=== PATIENT | female | born 1955 | race Caucasian/White ===

== ENCOUNTER 2020-10-03 07:25 | Outpatient (REF) | payer BC, SELFPAY ==
[2020-10-03 11:11] LABS: MANUAL DIFF FLAG NO
[2020-10-03 11:30] LABS: Basophils Percent Auto 0.5 % (0-2); Eosinophils Absolute Auto 0.1 X10*3/uL (0.0-0.4); Eosinophils Percent Auto 1.9 % (0-4); Hematocrit 43.8 % (37-47); Hemoglobin 14.8 g/dl (12.0-16.0); Imm Gran Abs Auto 0.02 X10*3/uL (0.00-0.03); Imm Gran Pct Auto 0.3 % (0.0-0.4); Lymphocytes Absolute Auto 1.9 X10*3/uL (1.2-4.9); Lymphocytes Percent Auto 31.7 % (20-40); Mean Corpuscular HGB Conc 33.8 g/dl (31.0-35.0); Mean Corpuscular Hemoglobin 30.2 pg (27.0-33.0); Mean Corpuscular Volume 89.4 fL (80-98); Mean Platelet Volume 10.1 fL (9.4-12.3); Monocytes Absolute Auto 0.4 X10*3/uL (0.1-1.2); Monocytes Percent Auto 7.2 % (2-11); Neutrophils Absolute Auto 3.4 X10*3/uL (2.0-8.3); Neutrophils Percent Auto 58.4 % (45-73); Platelet Count 255 X10*3/uL (160-400); Red Cell Distribution Width 12.4 % (11.0-16.0); White Blood Count 5.9 X10*3/uL (4.8-10.8)
[2020-10-03 11:36] LABS: Estimated Average Glucose 186 mg/dL; Hemoglobin A1c % 8.1 %
[2020-10-03 11:57] LABS: Glucose Urine UA NEG (NEG); Leukocyte Esterase Urine 1+ (NEG); Nitrite Urine NEG (NEG); PH 5.5 (5.0-8.0); Urine Blood NEG (NEG); Urine Ketones NEG (NEG); Urine Protein NEG (NEG-TRACE)
[2020-10-03 12:01] LABS: Appearance Urine HAZY; Color Urine YELLOW
[2020-10-03 12:04] LABS: Alanine Aminotransferase 43 U/L (0-31); Albumin Level 4.5 g/dL (3.5-5.0); Alkaline Phosphatase 78 U/L (39-117); Anion Gap 15 (12-20); Aspartate Amino Transferase 26 U/L (5-31); Bilirubin Total 0.6 mg/dL (0.0-1.0); Blood Urea Nitrogen 11 mg/dL (9-16); Calcium 8.9 mg/dL (8.4-10.2); Carbon Dioxide 27 mmol/L (22-29); Chloride 99 mmol/L (96-108); Cholesterol 166 mg/dL; Estimated Glomerular Filt Rate > 60; Glucose Fasting 208 mg/dL (60-99); HDL Cholesterol 42 mg/dL; LDL Cholesterol Calculated 65 mg/dl; Potassium 4.1 mmol/l (3.3-5.1); Sodium 137 mmol/L (135-145); Total Protein 6.9 g/dL (6.5-8.0); Triglycerides 296 mg/dL
[2020-10-03 12:06] LABS: Thyroid Stimulating Hormone 2.52 uIU/mL (0.32-4.0); Vitamin D 25-OH Total 28.7 ng/mL (>30)
[2020-10-03 12:15] LABS: Creatinine Urine 96.52 mg/dL; Microalbum/Creatinine Ratio Ur 5.1 ug/mg cr
[2020-10-03 12:20] LABS: Calcium Oxalate Crystals Urine 1+ /LPF; RBC Urine 0 /HPF (0); Squamous Epithelial Cell Urine 1+ /LPF
== END 2020-10-03 07:26 | disposition home or self-care (01) ==
LOC: HO.HMGCLDS 07:25
PROVIDERS: PCP Internal Medicine; Visit Provider Internal Medicine
DX: E03.9 Hypothyroidism, unspecified (principal); Z00.00 Encounter for general adult medical examination without abnormal findings; R73.02 Impaired glucose tolerance (oral); I10 Essential (primary) hypertension
CPT/HCPCS: 36415; 80053; 80061; 81001; 82043; 82306; 83036; 84443; 85025

== ENCOUNTER 2021-01-01 07:34 | Outpatient (REF) | payer MEDICARE, SELFPAY ==
[2021-01-01 11:25] LABS: Estimated Average Glucose 169 mg/dL; Hemoglobin A1c % 7.5 %
[2021-01-01 11:59] LABS: Alanine Aminotransferase 33 U/L (0-31); Albumin Level 4.5 g/dL (3.5-5.0); Alkaline Phosphatase 69 U/L (39-117); Anion Gap 15 (12-20); Aspartate Amino Transferase 20 U/L (5-31); Bilirubin Total 0.4 mg/dL (0.0-1.0); Blood Urea Nitrogen 15 mg/dL (9-16); Carbon Dioxide 26 mmol/L (22-29); Chloride 102 mmol/L (96-108); Cholesterol 176 mg/dL; Estimated Glomerular Filt Rate > 60; Glucose Fasting 203 mg/dL (60-99); HDL Cholesterol 43 mg/dL; LDL Cholesterol Calculated 77 mg/dl; Potassium 4.1 mmol/L (3.3-5.1); Sodium 139 mmol/L (135-145); Triglycerides 282 mg/dL
== END 2021-01-01 07:35 | disposition home or self-care (01) ==
LOC: HO.HMGCLDS 07:34
PROVIDERS: PCP Internal Medicine; Visit Provider Internal Medicine
DX: Z00.00 Encounter for general adult medical examination without abnormal findings (principal); I10 Essential (primary) hypertension; E03.9 Hypothyroidism, unspecified; E11.9 Type 2 diabetes mellitus without complications
CPT/HCPCS: 36415; 80053; 80061; 83036

== ENCOUNTER 2021-05-02 07:04 | Outpatient (REF) | payer MEDICARE, SELFPAY ==
[2021-05-02 11:35] LABS: Estimated Average Glucose 140 mg/dL; Hemoglobin A1c % 6.5 %
[2021-05-02 11:38] LABS: Glucose Urine UA NEG (NEG); Leukocyte Esterase Urine 1+ (NEG); Nitrite Urine NEG (NEG); PH 5.5 (5.0-8.0); Urine Blood NEG (NEG); Urine Ketones NEG (NEG); Urine Protein NEG (NEG-TRACE)
[2021-05-02 11:40] LABS: Creatinine Urine 86.36 mg/dL; Microalbumin Urine < 5.0 mg/L
[2021-05-02 11:46] LABS: Alanine Aminotransferase 33 U/L (0-31); Albumin Level 4.3 g/dL (3.5-5.0); Alkaline Phosphatase 70 U/L (39-117); Anion Gap 15 (12-20); Aspartate Amino Transferase 23 U/L (5-31); Bilirubin Total 0.5 mg/dL (0.0-1.0); Blood Urea Nitrogen 15 mg/dL (9-16); Calcium 9.3 mg/dL (8.4-10.2); Carbon Dioxide 24 mmol/L (22-29); Chloride 103 mmol/L (96-108); Cholesterol 162 mg/dL; Estimated Glomerular Filt Rate > 60; Glucose Fasting 164 mg/dL (60-99); HDL Cholesterol 46 mg/dL; LDL Cholesterol Calculated 70 mg/dl; Potassium 4.4 mmol/L (3.3-5.1); Sodium 138 mmol/L (135-145); Total Protein 6.9 g/dL (6.5-8.0); Triglycerides 232 mg/dL
[2021-05-02 11:47] LABS: Appearance Urine HAZY; Color Urine YELLOW
[2021-05-02 12:10] LABS: RBC Urine 0-2 /HPF (0); Squamous Epithelial Cell Urine 1+ /LPF
[2021-05-02 12:11] LABS: Calcium Oxalate Crystals Urine 2+ /LPF
== END 2021-05-02 07:05 | disposition home or self-care (01) ==
LOC: HO.HMGCLDS 07:04
PROVIDERS: PCP Internal Medicine; Visit Provider Internal Medicine
DX: E11.9 Type 2 diabetes mellitus without complications (principal)
CPT/HCPCS: 36415; 80053; 80061; 81001; 82043; 83036

== ENCOUNTER 2021-09-17 09:04 | Outpatient (REF) | payer MEDICARE, SELFPAY ==
[2021-09-17 11:51] LABS: Appearance Urine TURBID; Color Urine YELLOW; Glucose Urine UA NEG (NEG); Leukocyte Esterase Urine 1+ (NEG); Nitrite Urine NEG (NEG); Specific Gravity - Urine >= 1.030 (1.005-1.025); UACC Culture Trigger YES; Urine Blood 1+ (NEG); Urine Ketones NEG (NEG); Urine Protein TRACE MG/DL (NEG-TRACE)
[2021-09-17 12:08] LABS: Bacteria Urine 1+ /LPF; Squamous Epithelial Cell Urine 2+ /LPF
[2021-09-17 12:09] LABS: Amorphous Sediment Urine 4+ /LPF
== END 2021-09-17 09:05 | disposition home or self-care (01) ==
LOC: HO.HMGCLDS 09:04
PROVIDERS: PCP Internal Medicine; Visit Provider Internal Medicine
DX: N30.90 Cystitis, unspecified without hematuria (principal)
CPT/HCPCS: 81001; 87086

== ENCOUNTER 2021-11-09 07:41 | Outpatient (REF) | payer MEDICARE, SELFPAY ==
[2021-11-09 11:16] LABS: MANUAL DIFF FLAG NO
[2021-11-09 11:21] LABS: Basophils Percent Auto 0.6 % (0-2); Eosinophils Absolute Auto 0.1 X10*3/uL (0.0-0.4); Eosinophils Percent Auto 2.6 % (0-4); Hematocrit 45.6 % (37.0-47.0); Hemoglobin 15.2 g/dl (12.0-16.0); Imm Gran Abs Auto 0.01 X10*3/uL (0.00-0.03); Imm Gran Pct Auto 0.2 % (0.0-0.4); Lymphocytes Absolute Auto 1.8 X10*3/uL (1.2-4.9); Lymphocytes Percent Auto 33.3 % (20-40); Mean Corpuscular HGB Conc 33.3 g/dl (31.0-35.0); Mean Corpuscular Hemoglobin 30.3 pg (27.0-33.0); Mean Corpuscular Volume 90.8 fL (80.0-98.0); Mean Platelet Volume 9.7 fL (9.4-12.3); Monocytes Absolute Auto 0.4 X10*3/uL (0.1-1.2); Monocytes Percent Auto 7.2 % (2-11); Neutrophils Percent Auto 56.1 % (45-73); Platelet Count 234 X10*3/uL (160-400); Red Blood Count 5.02 X10*6/uL (4.20-5.50); Red Cell Distribution Width 12.8 % (11.0-16.0); White Blood Count 5.3 X10*3/uL (4.8-10.8)
[2021-11-09 11:36] LABS: Appearance Urine HAZY; Glucose Urine UA NEG (NEG); Leukocyte Esterase Urine 2+ (NEG); Nitrite Urine NEG (NEG); PH 5.5 (5.0-8.0); Specific Gravity - Urine >= 1.030 (1.005-1.025); Urine Blood TRACE (NEG); Urine Ketones NEG (NEG); Urine Protein TRACE MG/DL (NEG-TRACE)
[2021-11-09 11:39] LABS: Color Urine YELLOW
[2021-11-09 11:52] LABS: Calcium Oxalate Crystals Urine 1+ /LPF
[2021-11-09 11:53] LABS: Bacteria Urine TRACE /LPF; Mucus Urine 1+ /LPF; RBC Urine 0-2 /HPF (0); Squamous Epithelial Cell Urine 1+ /LPF
[2021-11-09 11:55] LABS: Alanine Aminotransferase 31 U/L (0-31); Albumin Level 4.3 g/dL (3.5-5.0); Alkaline Phosphatase 81 U/L (39-117); Anion Gap 15 (12-20); Aspartate Amino Transferase 22 U/L (5-31); Bilirubin Total 0.4 mg/dL (0.0-1.0); Blood Urea Nitrogen 12 mg/dL (9-16); Calcium 9.6 mg/dL (8.4-10.2); Carbon Dioxide 26 mmol/L (22-29); Chloride 103 mmol/L (96-108); Cholesterol 167 mg/dL; Estimated Glomerular Filt Rate > 60; Glucose Fasting 169 mg/dL (60-99); HDL Cholesterol 39 mg/dL; LDL Cholesterol Calculated 87 mg/dl; Potassium 4.1 mmol/L (3.3-5.1); Sodium 140 mmol/L (135-145); Total Protein 6.9 g/dL (6.5-8.0); Triglycerides 205 mg/dL
[2021-11-09 11:56] LABS: Estimated Average Glucose 140 mg/dL; Hemoglobin A1c % 6.5 %
[2021-11-09 12:15] LABS: Thyroid Stimulating Hormone 0.84 uIU/mL (0.32-4.0); Vitamin D 25-OH Total 31.1 ng/mL (>30)
[2021-11-09 12:22] LABS: Creatinine Urine 201.49 mg/dL; Microalbum/Creatinine Ratio Ur 8.9 ug/mg cr
== END 2021-11-09 07:42 | disposition home or self-care (01) ==
LOC: HO.HMGCLDS 07:41
PROVIDERS: Visit Provider Internal Medicine
DX: E11.9 Type 2 diabetes mellitus without complications (principal); I10 Essential (primary) hypertension; E03.9 Hypothyroidism, unspecified
CPT/HCPCS: 36415; 80053; 80061; 81001; 82043; 82306; 83036; 84443; 85025

== ENCOUNTER 2022-08-19 07:36 | Outpatient (REF) | payer MEDICARE, SELFPAY ==
[2022-08-19 11:06] LABS: MANUAL DIFF FLAG NO
[2022-08-19 11:15] LABS: Appearance Urine Cloudy; Color Urine Yellow; Glucose Urine UA Negative (Negative); Leukocyte Esterase Urine Large (3+) (Negative); Nitrite Urine Negative (Negative); PH 5.5 (5.0-9.0); UMIC TRIGGER UA YES; Urine Blood Negative (Negative); Urine Ketones Negative (Negative); Urine Protein Negative (Neg-Trace)
[2022-08-19 11:27] LABS: Bacteria Urine 1+ (None Seen); Calcium Oxalate Crystals Urine Present; Hyaline Casts Urine 0-2 /LPF (0-2); WBC Urine >50 /HPF (0-5)
[2022-08-19 11:35] LABS: Basophils Percent Auto 0.7 % (0-2); Eosinophils Absolute Auto 0.1 X10*3/uL (0.0-0.4); Eosinophils Percent Auto 1.9 % (0-4); Hematocrit 42.7 % (37.0-47.0); Hemoglobin 14.6 g/dl (12.0-16.0); Imm Gran Abs Auto 0.02 X10*3/uL (0.00-0.03); Imm Gran Pct Auto 0.3 % (0.0-0.4); Lymphocytes Absolute Auto 1.9 X10*3/uL (1.2-4.9); Lymphocytes Percent Auto 32.9 % (20-40); Mean Corpuscular HGB Conc 34.2 g/dl (31.0-35.0); Mean Corpuscular Hemoglobin 31.3 pg (27.0-33.0); Mean Corpuscular Volume 91.4 fL (80.0-98.0); Mean Platelet Volume 9.8 fL (9.4-12.3); Monocytes Absolute Auto 0.3 X10*3/uL (0.1-1.2); Monocytes Percent Auto 5.8 % (2-11); Neutrophils Absolute Auto 3.4 x10*3/uL (2.0-8.3); Neutrophils Percent Auto 58.4 % (45-73); Platelet Count 265 X10*3/uL (160-400); Red Blood Count 4.67 X10*6/uL (4.20-5.50); Red Cell Distribution Width 12.8 % (11.0-16.0); White Blood Count 5.9 X10*3/uL (4.8-10.8)
[2022-08-19 11:37] LABS: Estimated Average Glucose 134 mg/dL; Hemoglobin A1c % 6.3 %
[2022-08-19 12:03] LABS: Thyroid Stimulating Hormone 3.13 uIU/mL (0.32-4.0)
[2022-08-19 12:08] LABS: Alanine Aminotransferase 20 U/L (0-31); Albumin Level 4.3 g/dL (3.5-5.0); Alkaline Phosphatase 73 U/L (39-117); Anion Gap 18 (12-20); Aspartate Amino Transferase 18 U/L (5-31); Bilirubin Total 0.5 mg/dL (0.0-1.0); Blood Urea Nitrogen 13 mg/dL (9-16); Calcium 9.3 mg/dL (8.4-10.2); Carbon Dioxide 26 mmol/L (22-29); Chloride 101 mmol/L (96-108); Cholesterol 181 mg/dL; Estimated Glomerular Filt Rate > 60; Glucose Fasting 169 mg/dL (60-99); HDL Cholesterol 42 mg/dL; LDL Cholesterol Calculated 67 mg/dl; Potassium 3.8 mmol/L (3.3-5.1); Sodium 141 mmol/L (135-145); Total Protein 6.8 g/dL (6.5-8.0); Triglycerides 363 mg/dL
[2022-08-19 12:13] LABS: Creatinine Urine 105.48 mg/dL; Microalbum/Creatinine Ratio Ur 5.6 ug/mg cr
== END 2022-08-19 07:37 | disposition home or self-care (01) ==
LOC: HO.HMGCLDS 07:36
PROVIDERS: PCP Internal Medicine; Visit Provider Internal Medicine
DX: E11.9 Type 2 diabetes mellitus without complications (principal); E03.9 Hypothyroidism, unspecified; I10 Essential (primary) hypertension
CPT/HCPCS: 36415; 80053; 80061; 81001; 82043; 82306; 83036; 84443; 85025

== ENCOUNTER 2022-08-25 14:14 | Outpatient (REF) | payer MEDICARE, SELFPAY ==
[2022-08-25 16:45] LABS: Appearance Urine Clear; Color Urine Yellow; Glucose Urine UA Negative (Negative); Leukocyte Esterase Urine Trace (Negative); Nitrite Urine Negative (Negative); Specific Gravity - Urine 1.025 (1.005-1.025); UMIC TRIGGER UACC YES; Urine Blood Negative (Negative); Urine Ketones Negative (Negative); Urine Protein Negative (Neg-Trace)
[2022-08-25 17:11] LABS: Bacteria Urine None Seen (None Seen); Calcium Oxalate Crystals Urine Present; Hyaline Casts Urine 0-2 /LPF (0-2); Squamous Epithelial Cell Urine 0-2 /HPF (0-2); WBC Urine 0-5 /HPF (0-5)
== END 2022-08-25 14:15 | disposition home or self-care (01) ==
LOC: HO.HMGCLDS 14:14
PROVIDERS: PCP Internal Medicine; Visit Provider Internal Medicine
DX: R82.81 Pyuria (principal)
CPT/HCPCS: 81001; 87086

== ENCOUNTER 2023-02-19 07:48 | Outpatient (REF) | payer MEDICARE, SELFPAY ==
[2023-02-19 11:04] LABS: MANUAL DIFF FLAG NO
[2023-02-19 11:14] LABS: Appearance Urine Cloudy; Color Urine Yellow; Glucose Urine UA Negative (Negative); Leukocyte Esterase Urine Small (1+) (Negative); Nitrite Urine Negative (Negative); PH 5.5 (5.0-9.0); Specific Gravity - Urine >= 1.030 (1.005-1.025); UMIC TRIGGER UA YES; Urine Blood Negative (Negative); Urine Ketones Trace mg/dL (Negative); Urine Protein Trace mg/dL (Neg-Trace)
[2023-02-19 11:28] LABS: Bacteria Urine None Seen (None Seen); Calcium Oxalate Crystals Urine Present; Hyaline Casts Urine 0-2 /LPF (0-2)
[2023-02-19 11:47] LABS: Basophils Percent Auto 0.8 % (0-2); Eosinophils Absolute Auto 0.1 X10*3/uL (0.0-0.4); Eosinophils Percent Auto 1.8 % (0-4); Hematocrit 42.6 % (37.0-47.0); Imm Gran Abs Auto 0.01 X10*3/uL (0.00-0.03); Imm Gran Pct Auto 0.2 % (0.0-0.4); Lymphocytes Absolute Auto 1.5 X10*3/uL (1.2-4.9); Lymphocytes Percent Auto 30.8 % (20-40); Mean Corpuscular HGB Conc 32.9 g/dl (31.0-35.0); Mean Corpuscular Hemoglobin 29.7 pg (27.0-33.0); Mean Corpuscular Volume 90.4 fL (80.0-98.0); Mean Platelet Volume 9.9 fL (9.4-12.3); Monocytes Absolute Auto 0.3 X10*3/uL (0.1-1.2); Neutrophils Absolute Auto 2.9 x10*3/uL (2.0-8.3); Neutrophils Percent Auto 59.4 % (45-73); Platelet Count 252 X10*3/uL (160-400); Red Blood Count 4.71 X10*6/uL (4.20-5.50); White Blood Count 4.9 X10*3/uL (4.8-10.8)
[2023-02-19 11:49] LABS: Estimated Average Glucose 146 mg/dL; Hemoglobin A1c % 6.7 %
[2023-02-19 12:02] LABS: Creatinine Urine 181.08 mg/dL; Microalbum/Creatinine Ratio Ur 7.1 ug/mg cr
[2023-02-19 12:15] LABS: Alanine Aminotransferase 27 U/L (0-31); Albumin Level 4.3 g/dL (3.5-5.0); Alkaline Phosphatase 71 U/L (39-117); Anion Gap 13 (12-20); Aspartate Amino Transferase 21 U/L (5-31); Bilirubin Total 0.6 mg/dL (0.0-1.0); Blood Urea Nitrogen 20 mg/dL (9-16); Calcium 9.1 mg/dL (8.4-10.2); Carbon Dioxide 28 mmol/L (22-29); Chloride 105 mmol/L (96-108); Cholesterol 167 mg/dL; Estimated Glomerular Filt Rate > 60; Glucose Fasting 186 mg/dL (60-99); HDL Cholesterol 45 mg/dL; LDL Cholesterol Calculated 83 mg/dl; Potassium 4.3 mmol/L (3.3-5.1); Sodium 142 mmol/L (135-145); Total Protein 6.6 g/dL (6.5-8.0); Triglycerides 196 mg/dL
[2023-02-19 12:39] LABS: Thyroid Stimulating Hormone 2.21 uIU/mL (0.32-4.0); Vitamin D 25-OH Total 29.7 ng/mL (>30)
== END 2023-02-19 07:49 | disposition home or self-care (01) ==
LOC: HO.HMGCLDS 07:48
PROVIDERS: PCP Internal Medicine; Visit Provider Internal Medicine
DX: I10 Essential (primary) hypertension (principal); E11.9 Type 2 diabetes mellitus without complications; E03.9 Hypothyroidism, unspecified; E55.9 Vitamin D deficiency, unspecified
CPT/HCPCS: 36415; 80053; 80061; 81001; 82043; 82306; 83036; 84443; 85025

== ENCOUNTER 2023-08-14 07:05 | Outpatient (REF) | payer MEDICARE, SELFPAY ==
[2023-08-14 11:37] LABS: Appearance Urine Clear; Color Urine Yellow; Glucose Urine UA 100 mg/dL (Negative); Leukocyte Esterase Urine Small (1+) (Negative); Nitrite Urine Negative (Negative); PH 5.5 (5.0-9.0); UMIC TRIGGER UA YES; Urine Blood Negative (Negative); Urine Ketones Negative (Negative); Urine Protein Negative (Neg-Trace)
[2023-08-14 11:49] LABS: Bacteria Urine None Seen (None Seen); Calcium Oxalate Crystals Urine Present; Hyaline Casts Urine 0-2 /LPF (0-2); RBC Urine 0-2 /HPF (0-2)
[2023-08-14 11:53] LABS: Estimated Average Glucose 148 mg/dL; Hemoglobin A1c % 6.8 % (<6.0)
[2023-08-14 11:59] LABS: Anion Gap 16 (12-20); Blood Urea Nitrogen 12 mg/dL (9-16); Calcium 9.6 mg/dL (8.4-10.2); Carbon Dioxide 24 mmol/L (22-29); Chloride 102 mmol/L (96-108); Cholesterol 149 mg/dL (<200); Estimated Glomerular Filt Rate > 60; Glucose Fasting 185 mg/dL (60-99); HDL Cholesterol 44 mg/dL (>40); LDL Cholesterol Calculated 63 mg/dL (<100); Potassium 3.9 mmol/L (3.3-5.1); Sodium 138 mmol/L (135-145); Triglycerides 211 mg/dL (<150)
[2023-08-14 12:58] LABS: Creatinine Urine 109.81 mg/dL; Microalbum/Creatinine Ratio Ur 4.5 ug/mg cr (<30)
== END 2023-08-14 07:06 | disposition home or self-care (01) ==
LOC: HO.HMGCLDS 07:05
PROVIDERS: PCP Internal Medicine; Visit Provider Internal Medicine
DX: E11.9 Type 2 diabetes mellitus without complications (principal)
CPT/HCPCS: 36415; 80048; 80061; 81001; 82043; 82570; 83036

== ENCOUNTER 2024-02-12 07:17 | Outpatient (REF) | payer MEDICARE, SELFPAY ==
[2024-02-12 10:25] LABS: MANUAL DIFF FLAG NO
[2024-02-12 10:33] LABS: Appearance Urine Turbid; Color Urine Yellow; Glucose Urine UA 500 mg/dL (Negative); Leukocyte Esterase Urine Small (1+) (Negative); Nitrite Urine Negative (Negative); PH 5.5 (5.0-9.0); Specific Gravity - Urine >= 1.030 (1.005-1.025); UMIC TRIGGER UA YES; Urine Blood Negative (Negative); Urine Ketones Trace mg/dL (Negative); Urine Protein Negative (Neg-Trace)
[2024-02-12 10:53] LABS: Bacteria Urine Trace (None Seen); Calcium Oxalate Crystals Urine Present; Hyaline Casts Urine 0-2 /LPF (0-2); RBC Urine 0-2 /HPF (0-2); WBC Urine 0-5 /HPF (0-5)
[2024-02-12 10:53] LABS: Basophils Percent Auto 0.7 % (0-2); Eosinophils Absolute Auto 0.1 X10*3/uL (0.0-0.4); Eosinophils Percent Auto 2.2 % (0-4); Hematocrit 44.3 % (37.0-47.0); Hemoglobin 14.7 g/dl (12.0-16.0); Imm Gran Abs Auto 0.01 X10*3/uL (0.00-0.03); Imm Gran Pct Auto 0.2 % (0.0-0.4); Lymphocytes Percent Auto 33.3 % (20-40); Mean Corpuscular HGB Conc 33.2 g/dl (31.0-35.0); Mean Corpuscular Hemoglobin 29.4 pg (27.0-33.0); Mean Corpuscular Volume 88.6 fL (80.0-98.0); Mean Platelet Volume 9.8 fL (9.4-12.3); Monocytes Absolute Auto 0.4 X10*3/uL (0.1-1.2); Monocytes Percent Auto 6.7 % (2-11); Neutrophils Absolute Auto 3.3 x10*3/uL (2.0-8.3); Neutrophils Percent Auto 56.9 % (45-73); Platelet Count 264 X10*3/uL (160-400); Red Cell Distribution Width 12.5 % (11.0-16.0); White Blood Count 5.9 X10*3/uL (4.8-10.8)
[2024-02-12 11:08] LABS: Estimated Average Glucose 169 mg/dL; Hemoglobin A1c % 7.5 % (<6.0)
[2024-02-12 11:33] LABS: Creatinine Urine 146.79 mg/dL; Microalbum/Creatinine Ratio Ur 8.8 ug/mg cr (<30)
[2024-02-12 11:49] LABS: Alanine Aminotransferase 23 U/L (0-31); Albumin Level 4.2 g/dL (3.5-5.0); Alkaline Phosphatase 75 U/L (39-117); Anion Gap 13 (12-20); Aspartate Amino Transferase 20 U/L (5-31); Bilirubin Total 0.4 mg/dL (0.0-1.0); Blood Urea Nitrogen 15 mg/dL (9-16); Calcium 9.3 mg/dL (8.4-10.2); Carbon Dioxide 26 mmol/L (22-29); Chloride 106 mmol/L (96-108); Cholesterol 168 mg/dL (<200); Estimated Glomerular Filt Rate > 60; Glucose Fasting 193 mg/dL (60-99); HDL Cholesterol 41 mg/dL (>40); LDL Cholesterol Calculated 69 mg/dL (<100); Potassium 4.2 mmol/L (3.3-5.1); Sodium 141 mmol/L (135-145); Triglycerides 290 mg/dL (<150)
[2024-02-12 11:55] LABS: Thyroid Stimulating Hormone 1.02 uIU/mL (0.32-4.0)
== END 2024-02-12 07:18 | disposition home or self-care (01) ==
LOC: HO.HMGCLDS 07:17
PROVIDERS: PCP Internal Medicine; Visit Provider Internal Medicine
DX: E03.9 Hypothyroidism, unspecified (principal); E11.9 Type 2 diabetes mellitus without complications; I10 Essential (primary) hypertension
CPT/HCPCS: 36415; 80053; 80061; 81001; 82043; 82570; 83036; 84443; 85025

== ENCOUNTER 2024-08-26 07:21 | Outpatient (REF) | payer MEDICARE, SELFPAY ==
[2024-08-26 10:17] LABS: Appearance Urine Clear; Color Urine Yellow; Glucose Urine UA 500 mg/dL (Negative); Leukocyte Esterase Urine Small (1+) (Negative); Nitrite Urine Negative (Negative); PH 5.5 (5.0-9.0); Specific Gravity - Urine 1.025 (1.005-1.025); UMIC TRIGGER UA YES; Urine Blood Negative (Negative); Urine Ketones Trace mg/dL (Negative); Urine Protein Negative (Neg-Trace)
[2024-08-26 10:24] LABS: MANUAL DIFF FLAG NO
[2024-08-26 10:38] LABS: Basophils Percent Auto 0.8 % (0-2); Eosinophils Absolute Auto 0.1 X10*3/uL (0.0-0.4); Eosinophils Percent Auto 2.6 % (0-4); Hematocrit 40.8 % (37.0-47.0); Hemoglobin 13.7 g/dl (12.0-16.0); Imm Gran Abs Auto 0.01 X10*3/uL (0.00-0.03); Imm Gran Pct Auto 0.2 % (0.0-0.4); Lymphocytes Absolute Auto 1.5 X10*3/uL (1.2-4.9); Lymphocytes Percent Auto 30.4 % (20-40); Mean Corpuscular HGB Conc 33.6 g/dl (31.0-35.0); Mean Corpuscular Hemoglobin 29.5 pg (27.0-33.0); Mean Corpuscular Volume 87.7 fL (80.0-98.0); Mean Platelet Volume 9.7 fL (9.4-12.3); Monocytes Absolute Auto 0.4 X10*3/uL (0.1-1.2); Monocytes Percent Auto 6.9 % (2-11); Neutrophils Percent Auto 59.1 % (45-73); Platelet Count 270 X10*3/uL (160-400); Red Blood Count 4.65 X10*6/uL (4.20-5.50); Red Cell Distribution Width 12.9 % (11.0-16.0); White Blood Count 5.1 X10*3/uL (4.8-10.8)
[2024-08-26 11:02] LABS: Bacteria Urine None Seen (None Seen); Calcium Oxalate Crystals Urine Present; Hyaline Casts Urine 0-2 /LPF (0-2); Squamous Epithelial Cell Urine 0-2 /HPF (0-2); WBC Urine 21-50 /HPF (0-5)
[2024-08-26 11:04] LABS: Estimated Average Glucose 154 mg/dL; Hemoglobin A1C 186.9124 umol/L; Total Hemoglobin (HGBA1C) 3560.5124 umol/L
[2024-08-26 11:14] LABS: Creatinine Urine 115.65 mg/dL
[2024-08-26 11:26] LABS: Alanine Aminotransferase 24 U/L (0-31); Alkaline Phosphatase 73 U/L (39-117); Anion Gap 12 (12-20); Aspartate Amino Transferase 23 U/L (5-31); Bilirubin Direct 0.1 mg/dL (0.0-0.5); Bilirubin Total 0.4 mg/dL (0.0-1.0); Blood Urea Nitrogen 12 mg/dL (9-16); Calcium 9.5 mg/dL (8.4-10.2); Carbon Dioxide 25 mmol/L (22-29); Chloride 105 mmol/L (96-108); Cholesterol 147 mg/dL (<200); Estimated Glomerular Filt Rate > 60; Glucose Fasting 174 mg/dL (60-99); HDL Cholesterol 38 mg/dL (>40); LDL Cholesterol Calculated 62 mg/dL (<100); Potassium 4.2 mmol/L (3.3-5.1); Sodium 138 mmol/L (135-145); Thyroid Stimulating Hormone 0.34 uIU/mL (0.32-4.0); Total Protein 6.7 g/dL (6.5-8.0); Triglycerides 238 mg/dL (<150)
== END 2024-08-26 07:22 | disposition home or self-care (01) ==
LOC: HO.HMGCLDS 07:21
PROVIDERS: PCP Internal Medicine; Visit Provider Internal Medicine
DX: I10 Essential (primary) hypertension (principal); E11.9 Type 2 diabetes mellitus without complications; E03.9 Hypothyroidism, unspecified
CPT/HCPCS: 36415; 80048; 80061; 80076; 81001; 82043; 82570; 83036; 84443; 85025

== ENCOUNTER 2025-03-01 07:33 | Outpatient (REF) | payer MEDICARE, SELFPAY ==
[2025-03-01 10:13] LABS: Appearance Urine Clear; Color Urine Yellow; Glucose Urine UA Negative (Negative); Leukocyte Esterase Urine Small (1+) (Negative); Nitrite Urine Negative (Negative); UMIC TRIGGER UA YES; Urine Blood Negative (Negative); Urine Ketones Negative (Negative); Urine Protein Negative (Neg-Trace)
[2025-03-01 10:27] LABS: Hematocrit 41.9 % (37.0-47.0); Hemoglobin 14.1 g/dl (12.0-16.0); Mean Corpuscular HGB Conc 33.7 g/dl (31.0-35.0); Mean Corpuscular Hemoglobin 29.6 pg (27.0-33.0); Mean Platelet Volume 9.9 fL (9.4-12.3); Platelet Count 259 X10*3/uL (160-400); Red Blood Count 4.76 X10*6/uL (4.20-5.50); Red Cell Distribution Width 12.7 % (11.0-16.0); White Blood Count 5.3 X10*3/uL (4.8-10.8)
[2025-03-01 10:30] LABS: Bacteria Urine None Seen (None Seen); Calcium Oxalate Crystals Urine Present; Hyaline Casts Urine 0-2 /LPF (0-2); RBC Urine 0-2 /HPF (0-2); WBC Urine 0-5 /HPF (0-5)
[2025-03-01 10:35] LABS: Estimated Average Glucose 160 mg/dL; Hemoglobin A1C 202.5468 umol/L; Hemoglobin A1c % 7.2 % (<6.0); Total Hemoglobin (HGBA1C) 3681.7756 umol/L
[2025-03-01 10:50] LABS: Alanine Aminotransferase 30 U/L (0-31); Albumin Level 4.3 g/dL (3.5-5.0); Anion Gap 15 (12-20); Aspartate Amino Transferase 31 U/L (5-31); Bilirubin Direct 0.2 mg/dL (0.0-0.5); Bilirubin Total 0.5 mg/dL (0.0-1.0); Blood Urea Nitrogen 13 mg/dL (9-16); Calcium 9.4 mg/dL (8.4-10.2); Carbon Dioxide 28 mmol/L (22-29); Chloride 102 mmol/L (96-108); Cholesterol 169 mg/dL (<200); Estimated Glomerular Filt Rate > 60; Glucose Random 176 mg/dL (60-115); HDL Cholesterol 42 mg/dL (>40); LDL Cholesterol Calculated 72 mg/dL (<100); Sodium 141 mmol/L (135-145); Triglycerides 275 mg/dL (<150)
[2025-03-01 10:53] LABS: Creatinine Urine 104.72 mg/dL; Microalbum/Creatinine Ratio Ur 5.7 ug/mg cr (<30)
[2025-03-01 11:07] LABS: Alkaline Phosphatase 74 U/L (39-117)
[2025-03-01 11:08] LABS: Thyroid Stimulating Hormone 0.38 uIU/mL (0.32-4.0)
== END 2025-03-01 07:34 | disposition home or self-care (01) ==
LOC: HO.HMGCLDS 07:33
PROVIDERS: PCP Internal Medicine; Visit Provider Internal Medicine
DX: E11.9 Type 2 diabetes mellitus without complications (principal); I10 Essential (primary) hypertension
CPT/HCPCS: 36415; 80048; 80061; 80076; 81001; 82043; 82570; 83036; 84443; 85027

== ENCOUNTER 2025-03-14 12:48 | Outpatient (AMB) | payer MEDICARE, SELFPAY ==
--- NOTE | 2025-03-14 13:02 | A.OFFPC_ITS ---
Vital Signs 03/14/25 13:05 Height 5 ft 3 in Weight 150 lb BMI 26.6 BP 131/62 Respiration 14 Pulse 70 Pulse Source Pulse Oximeter Temp 98.2 F Temp Source Temporal Artery Scan Pulse Oximetry (%) 98 Oxygen Delivery Method Room Air Intake Visit Reasons: 6 month follow up Fire Protection Engineer Required: No Accompanied by: Self / Same As Patient Allergies cephalexin [From Keflex] Allergy (Verified 03/14/25 13:21) Rash strawberries Allergy (Unknown, Uncoded 03/14/25 13:21) Unknown Medication List - Last Reconciled 03/14/25 by Ruben Jarvis MD aspirin (Adult Low Dose Aspirin) 81 mg PO DAILY atenolol 50 mg PO DAILY blood sugar diagnostic ([employer] Ultra Test strips) As directed cholecalciferol (vitamin D3) 25 mcg PO DAILY estradiol 0.01%(0.1mg/gram) vaginal glipizide 10 mg PO BID lancets As directed levothyroxine 112 mcg PO DAILY metformin 1,000 mg PO BID Tobacco use date assessed: 03/14/25 Fall risk assessment: No Falls in past year Last assessed Fall Risk: 03/14/25 Dental Screening Dental Screen Date: 03/14/25 Did you have a dental visit in the last 12 months?: Yes Did you have a dental problem in the last 6 months where you did not have access to dental care?: No Was dental information given to patient?: Patient has dentist [facility] Medical History Menopause Glucose intolerance Diabetes type 2 Renal lithiasis Hypothyroidism Hypertension Surgical History History of colonoscopy (~01/01/18) Family History Father Lung cancer Smoker Mother Liver cancer Alcohol abuse Social History Housing: House Alcohol intake: current Alcohol intake frequency: holidays/special occasions only Alcohol type: wine Patient Tobacco Use Status: Former Tobacco user service: No Current occupational status: employed and retired Current occupation: working party plan selling distributor Cognitive needs: No Hearing needs: No Vision needs: Yes (rx glasses) Questionnaire PHQ-9 Over the last 2 weeks, how often have you been bothered by any of the following problems? 1. Little interest or pleasure in doing things: not at all 2. Feeling down, depressed, or hopeless: not at all 3. Trouble falling or staying asleep, or sleeping too much: not at all 4. Feeling tired or having little energy: not at all 5. Poor appetite or overeating: not at all 6. Feeling bad about yourself - or that you are a failure or have let yourself or your family down: not at all 7. Trouble concentrating on things, such as reading the newspaper or watching te levision: not at all 8. Moving or speaking so slowly that other people could have noticed. Or the opposite - being so fidgety or restless that you have been moving around a lot more than usual: not at all 9. Thoughts that you would be better off or of hurting yourself in some way: not at all Total score: 0 Depression Screening Interpretation: Negative Depression Screening Done: Yes Source: Developed by Drs. Kye Kearns, Tamia Soriano, Jamal Gorman and colleagues, with an educational mar from [employer]. Thrive Questionnaire Date Thrive assessed: 03/14/25 I am a: Patient What is your living situation today?: I have a steady place to live Within the past 12 months, did the food you bought not last and you didn't have the money to get more?: Never true Within the past 12 months, did you worry whether your food would run out before you got money to buy more?: Never true Do you have trouble paying for medicines?: No Do you have trouble getting transportation to medical appointments?: No Do you have trouble paying your heating and electricity bill?: No Do you have trouble taking care of your child, family member or friend?: No Do you have trouble with day-to-day activities such as bathing, preparing meals, shopping, managing finances, etc.?: No Are you currently unemployed and looking for a job?: No Are you interested in more education?: No Please select the resources that you would like help with: None Currently or been in a relationship where the following occur: No concerns reported THRIVE Score: 0 AUDIT C Alcohol Use Questionnaire (AUDIT-C) 1. How often do you have a drink containing alcohol?: Monthly or less 2. How many drinks containing alcohol do you have on a typical day when you are drinking?: 1 or 2 3. How often do you have six or more drinks on one occasion?: Never Total Score: 1 BIENVENIDO-7 AMB Questionnaire BIENVENIDO-7 Date BIENVENIDO - 7 assessed: 03/14/25 Feeling nervous, anxious, or on edge: 0 = Not at all Not being able to stop or control worryin = Not at all Worrying too much about different things: 0 = Not at all Trouble relaxin = Not at all Being so restless that it is hard to sit still: 0 = Not at all Becoming easily annoyed or irritable: 0 = Not at all Feeling afraid as if something awful might happen: 0 = Not at all Total BIENVENDIO-7 score (0-4 normal; 5-9 mild; 10-14 moderate; 15-21 severe): 0 Source: Developed by Drs. Kye Kearns, Tamia Soriano, Jamal Gorman and colleagues, with an educational amr from [employer]. Physical exam (Primary Care) Vital Signs: Last Vital Signs Temp 98.2 F 03/14/25 13:05 Pulse 70 03/14/25 13:05 Resp 14 03/14/25 13:05 BP 131/62 03/14/25 13:05 Pulse Ox 98 03/14/25 13:05 Oxygen Delivery Method Room Air 03/14/25 13:05 BMI result Body Mass Index 26.6 Tobacco/Smoking Status: Tobacco use Status Tobacco use date assessed 03/14/25 03/14/25 13:11 Patient Tobacco Use Status Former Tobacco user 03/14/25 13:11 PHQ-9: PHQ-9 Score PHQ-9: Total score 0 03/14/25 13:11 Depression Screening Interpretation: Negative Thrive Assessment: Date of Thrive Assessment Date Thrive assessed 03/14/25 03/14/25 13:11 Currently or been in a relationship where the following occur: No concerns reported Advance Care Planning discussion: Exists, not on file Date of discussion: 03/14/25 Who was present: Patient Forms completed: Health Care Proxy and [facility] Actual minutes spent: 5 Coding Level of Care Code New Pt Level 4 (74669) Complex EM visit Add On G2211 Diagnoses Hypertension I10 Diabetes type 2 E11.9 Additional Codes Vital Signs *Quality* - Advance Care Planning discussion: Exists, not on file ([id number]) Assessment & Plan Assessment & Plan (1) Hypertension: Code(s): I10 - Essential (primary) hypertension Category: Medical Plan: BP is in range. Continue meds at same dosage (2) Diabetes type 2: Code(s): E11.9 - Type 2 diabetes mellitus without complications Category: Medical Plan: A1c is above 7. Patient cannot afford non generic meds. Wishes to continue with current meds Plan History of Present Illness The patient is a 70-year-old female presenting with prepatellar bursitis exacerbated by recent gardening activities. She notes a previous occurrence of significant knee swelling from similar activities one year prior, which was effectively managed with a knee brace and ibuprofen. Currently, the patient reports minor knee inflammation, attributed to a gardening session where she took precautions not to kneel excessively. The patient describes an incident of foot swelling which she associates with wearing her knee sleeve overnight, although this has since subsided without further complications. Additionally, the patient has Type 2 Diabetes Mellitus, with a recent A1c of 7.2, while on metformin and glipizide. She is exploring lifestyle modifications to manage her diabetes, emphasizing dietary control and increased physical activity due to concerns over the cost of additional medications. 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 - Exercise: Engages in gardening activities. - Lifestyle: Interested in increasing physical activity to manage weight and improve health. - Health Management: Prefers to control diabetes with dietary changes and exercise due to cost concerns over non-generic medications. Review of Systems - Musculoskeletal: Reports knee inflammation and foot swelling. - Endocrine: Reports elevated blood sugar levels. Physical Exam General: Cooperative and healthy appearing Nutritional Appearance: Well nourished Orientation/consciousness: Patient oriented x3 Limitations: No limitations Head: Normal to inspection General: Appearance normal, both eyes and all related structures Neck: Normal visual inspection Chest: Normal palpation of entire chest wall Respiratory: Normal respiratory effort Neurology: Patient oriented x3 Results - Labs: Hemoglobin A1c reported as 7.2 - Tests: Routine blood work reviewed, findings consistent with diabetes management on metformin and glipizide. Plan 1. Prepatellar Bursitis - Utilize knee support during activities and recommend NSAIDs for symptom relief. - Advise against overnight knee support use to prevent swelling. 2. Type 2 Diabetes Mellitus With Elevated Hemoglobin A1c - Initial focus on lifestyle changes including diet and exercise to manage blood glucose. - Evaluate potential for additional medications if lifestyle adjustments are insufficient. Discussion Notes During our discussion, I addressed the concerns regarding gardening-related knee inflammation and the strategy for managing prepatellar bursitis without further exacerbating symptoms. I recommended using knee support during activity and avoiding overnight use to prevent additional swelling. We explored ongoing management of her Type 2 Diabetes Mellitus, emphasizing the importance of achieving a target A1c. We evaluated potential therapeutic options such as Trulicity and Jardiance, considering the financial implications. The patient expressed a preference for prioritizing lifestyle modifications, including dietary management and increased physical activity. Patient Instructions - Use a knee sleeve during activities and remove it before going to bed. - Take Aleve or Tylenol as needed for pain. - Focus on controlling diabetes with diet and exercise. - Monitor blood sugar levels regularly. - Schedule a follow-up to discuss further diabetes management if necessary.
[2025-03-14 13:05] VITALS: BP 131/62; PULSE 70; RESP 14; TEMP 36.8; O2SAT 98; BMI 26.6
== END 2025-03-14 13:21 | disposition home or self-care (01) ==
LOC: HO.HMCSH 12:48
PROVIDERS: PCP Internal Medicine; Visit Provider Internal Medicine
DX: I10 Essential (primary) hypertension (principal); E11.9 Type 2 diabetes mellitus without complications; Z00.00 Encounter for general adult medical examination without abnormal findings

== ENCOUNTER → 2025-03-14 12:48 | Outpatient (BNVA) | payer MEDICARE, SELFPAY | PROVIDERS: PCP Internal Medicine; Visit Provider Internal Medicine | DX: I10 Essential (primary) hypertension (principal); E11.9 Type 2 diabetes mellitus without complications | CPT/HCPCS: 99202 ==

== ENCOUNTER 2025-08-25 07:55 | Outpatient (REF) | payer MEDICARE, SELFPAY ==
[2025-08-25 10:40] LABS: Hematocrit 43.1 % (37.0-47.0); Hemoglobin 14.0 g/dl (12.0-16.0); Mean Corpuscular HGB Conc 32.5 g/dl (31.0-35.0); Mean Corpuscular Hemoglobin 28.7 pg (27.0-33.0); Mean Corpuscular Volume 88.5 fL (80.0-98.0); NRBC Abs Auto 0.000 X10*3/uL (0.0-0.012); NRBC Pct Auto 0.0 /100WBC (0.0-0.2); Platelet Count 287 X10*3/uL (160-400); Red Blood Count 4.87 X10*6/uL (4.20-5.50); White Blood Count 5.0 X10*3/uL (4.8-10.8)
[2025-08-25 10:45] LABS: Appearance Urine Turbid; Glucose Urine UA 100 mg/dL (Negative); PH 5.5 (5.0-9.0); Specific Gravity - Urine >= 1.030 (1.005-1.025); UMIC TRIGGER UA YES
[2025-08-25 11:19] LABS: Alanine Aminotransferase 26 U/L (0-31); Albumin Level 4.4 g/dL (3.5-5.0); Alkaline Phosphatase 63 U/L (39-117); Anion Gap 11 (12-20); Aspartate Amino Transferase 27 U/L (5-31); Blood Urea Nitrogen 14 mg/dL (9-16); Calcium 9.1 mg/dL (8.4-10.2); Carbon Dioxide 28 mmol/L (22-29); Chloride 106 mmol/L (96-108); Cholesterol 153 mg/dL (<200); Estimated Glomerular Filt Rate > 60; HDL Cholesterol 42 mg/dL (>40); Potassium 3.8 mmol/L (3.3-5.1); Sodium 141 mmol/L (135-145); Thyroid Stimulating Hormone 0.04 uIU/mL (0.32-4.0); Total Protein 6.8 g/dL (6.5-8.0); Triglycerides 214 mg/dL (<150)
[2025-08-25 11:40] LABS: Microalbum/Creatinine Ratio Ur 11.8 ug/mg cr (<30)
== END 2025-08-25 07:56 | disposition home or self-care (01) ==
LOC: HO.HMGCLDS 07:55
PROVIDERS: PCP Internal Medicine; Visit Provider Internal Medicine
DX: E11.9 Type 2 diabetes mellitus without complications (principal)
CPT/HCPCS: 36415; 80048; 80061; 80076; 81001; 82043; 82570; 84443; 85027; 85652

== ENCOUNTER 2025-09-12 13:17 | Outpatient (AMB) | payer MEDICARE, SELFPAY ==
[2025-09-12 13:22] VITALS: BP 133/63; PULSE 68; RESP 14; TEMP 36.4; O2SAT 98; BMI 24.4
--- NOTE | 2025-09-12 13:22 | A.OFFPC_ITS ---
Vital Signs 09/12/25 13:22 Height 5 ft 3 in Weight 138 lb BMI 24.4 BP 133/63 Blood Pressure Location Rt brachial Position Sitting Respiration 14 Pulse 68 Pulse Source Pulse Oximeter Temp 97.5 F Temp Source Temporal Artery Scan Pulse Oximetry (%) 98 Oxygen Delivery Method Room Air Intake Visit Reasons: 6 month f/u Financial Aid Administrator Required: No Accompanied by: Self / Same As Patient Allergies cephalexin (From Keflex) Allergy (Verified 09/12/25 13:23) Rash strawberries Allergy (Unknown, Uncoded 09/12/25 13:23) Unknown Tobacco use date assessed: 03/14/25 Dental Screening Dental Screen Date: 03/14/25 HPI HPI Comments History of Present Illness Details History of Present Illness - The patient is a 70-year-old female pr esenting for management of chronic conditions and medication management. - Regarding her hypothyroidism, the sumi ent reports significant difficulty obtaining a prescription for levothyroxide 100 mcg, which is a dose reduction from her long-term medication. - She has encountered issues with her armacy and insurance regarding the cost and formulation, as alternatives like Levoxyl and UNIThyroid were offered at a much higher peck than the $9 she typically pays for a 3-month supply. - To manage her dosage, she has been eit her cutting her existing pills or skipping a weekly dose. - For type 2 diabetes mellitus, her last hemoglobin A1c was 7.2% in February. - She takes glipizide twice daily and re ports that her periodic home blood glucose checks are fine. - The patient notes some persistent swel ling from a prior prepatellar bursitis but states it is not painful or bothersome. - She also reports intermittent episodes where she wakes with an aching right arm and a hot, tingling sensation in her right hand, which she attributes to her sleeping position and which resolves upon moving. - For health maintenance, the patient co mpleted a recent mammogram which showed an abnormality, prompting a follow-up ultrasound scheduled for tomorrow. - She is up-to-date with her COVID-19 an d influenza vaccinations. Social History - Reports being a right-side sleeper. Results - Labs: Hemoglobin A1c was 7.2% in February. - Imaging: Recent mammogram revealed an abnormality, requiring further evaluation. [facility] Medical History Menopause Glucose intolerance Diabetes type 2 Renal lithiasis Hypothyroidism Hypertension Surgical History History of colonoscopy (~01/01/18) Family History Father Lung cancer Smoker Mother Liver cancer Alcohol abuse Social History Housing: House Alcohol intake: current Alcohol intake frequency: holidays/special occasions only Alcohol type: wine Patient Tobacco Use Status: Former Tobacco user service: No Current occupational status: employed and retired Current occupation: working department store general manager Cognitive needs: No Hearing needs: No Vision needs: Yes (rx glasses) Questionnaire PHQ-9 Over the last 2 weeks, how often have you been bothered by any of the following problems? 1. Little interest or pleasure in doing things: not at all 2. Feeling down, depressed, or hopeless: not at all 3. Trouble falling or staying asleep, or sleeping too much: not at all 4. Feeling tired or having little energy: not at all 5. Poor appetite or overeating: not at all 6. Feeling bad about yourself - or that you are a failure or have let yourself or your family down: not at all 7. Trouble concentrating on things, such as reading the newspaper or watching television: not at all 8. Moving or speaking so slowly that other people could have noticed. Or the opposite - being so fidgety or restless that you have been moving around a lot more than usual: not at all 9. Thoughts that you would be better off or of hurting yourself in some way: not at all Total score: 0 Depression Screening Interpretation: Negative Depression Screening Done: Yes Source: Developed by Drs. Kye Kearns, Tamia Soriano, Jamal Gorman and colleagues, with an educational mar from [employer]. Thrive Questionnaire Date Thrive assessed: 03/14/25 I am a: Patient What is your living situation today?: I have a steady place to live Within the past 12 months, did the food you bought not last and you didn't have the money to get more?: Never true Within the past 12 months, did you worry whether your food would run out before you got money to buy more?: Never true Do you have trouble paying for medicines?: No Do you have trouble getting transportation to medical appointments?: No Do you have trouble paying your heating and electricity bill?: No Do you have trouble taking care of your child, family member or friend?: No Do you have trouble with day-to-day activities such as bathing, preparing meals, shopping, managing finances, etc.?: No Are you currently unemployed and looking for a job?: No Are you interested in more education?: No Please select the resources that you would like help with: None Currently or been in a relationship where the following occur: No concerns reported THRIVE Score: 0 AUDIT C Alcohol Use Questionnaire (AUDIT-C) 1. How often do you have a drink containing alcohol?: Monthly or less 2. How many drinks containing alcohol do you have on a typical day when you are drinking?: 1 or 2 3. How often do you have six or more drinks on one occasion?: Never Total Score: 1 BIENVENIDO-7 AMB Questionnaire BIENVENIDO-7 Date BIENVENIDO - 7 assessed: 03/14/25 Feeling nervous, anxious, or on edge: 0 = Not at all Not being able to stop or control worryin = Not at all Worrying too much about different things: 0 = Not at all Trouble relaxin = Not at all Being so restless that it is hard to sit still: 0 = Not at all Becoming easily annoyed or irritable: 0 = Not at all Feeling afraid as if something awful might happen: 0 = Not at all Total BIENVENIDO-7 score (0-4 normal; 5-9 mild; 10-14 moderate; 15-21 severe): 0 Source: Developed by Drs. Kye Kearns, Tamia Soriano, Jamal Gorman and colleagues, with an educational mar from [employer]. Review of Systems Narrative Review of Systems - Musculoskeletal: Reports persistent swelling in the knee. Denies pain. - Neurological: Reports intermittent right arm aching and right hand heat with paresthesia upon waking, which resolves with repositioning. Physical exam (Primary Care) Vital Signs: Last Vital Signs Temp 97.5 F 09/12/25 13:22 Pulse 68 09/12/25 13:22 Resp 14 09/12/25 13:22 BP 133/63 09/12/25 13:22 Pulse Ox 98 09/12/25 13:22 Oxygen Delivery Method Room Air 09/12/25 13:22 BMI result Body Mass Index 24.4 Tobacco/Smoking Status: Tobacco use Status Tobacco use date assessed 03/14/25 09/12/25 13:27 Patient Tobacco Use Status Former Tobacco user 09/12/25 13:27 PHQ-9: PHQ-9 Score PHQ-9: Total score 0 09/12/25 13:27 Depression Screening Interpretation: Negative Thrive Assessment: Date of Thrive Assessment Date Thrive assessed 03/14/25 09/12/25 13:27 Currently or been in a relationship where the following occur: No concerns reported Narrative Physical Exam General: Cooperative and healthy appearing Nutritional Appearance: Well nourished Orientation/consciousness: Patient oriented x3 Limitations: No limitations Head: Normal to inspection General: Appearance normal, both eyes and all related structures Neck: Normal visual inspection Chest: Normal palpation of entire chest wall Respiratory: Normal respiratory effort Neurology: Patient oriented x3 Office Procedures Flu Questionnaire Does the patient have a severe egg allergy?: No Does the patient have severe life threatening allergies?: No Does the patient have a fever or illness today?: No Has the patient ever had Guillain-[place] Syndrome?: No Has the patient ever had any past reaction to a flu shot?: No Immunizations Fluarix [id number] (PF) 45 mcg (15 mcg x 3)/0.5 mL IM syringe Performing Provider: Ruben Jarvis MD [facility] Documented (not given) by: JULIANE Bautista on 09/12/25 13:29 Reason Not Given: Received Previously Coding Level of Care Code Est Pt Level 4 (74401) Complex EM visit Add On G2211 Diagnoses Hypothyroidism E03.9 Assessment & Plan Assessment & Plan (1) Hypothyroidism: Code(s): E03.9 - Hypothyroidism, unspecified Category: Medical Plan Plan - Hypothyroidism: Will coordinate with the medical research scientist to call the patient's pharmacy ([facility]) from the office with the patient present. - The goal is to clarify the last dispensed formulation of levothyroxine and send a new prescription for 100 mcg of that specific medication to resolve cost and brand/generic issues. - In the interim, the patient is advised to skip one dose of her current levothyroxine 112 mcg pill weekly on Sundays. - Type 2 Diabetes Mellitus: Will perform a [id number] hemoglobin A1c test in the office today to assess current glycemic control. - Abnormal Mammogram: Patient to proceed with her scheduled follow-up ultrasound and any further imaging tomorrow. - Positional Paresthesia: Patient's symptoms are self-resolving; continue to monitor. - Prepatellar Bursitis: Continue to monitor as the condition is asymptomatic besides swelling. Discussion Notes I had an extensive discussion with the patient regarding the significant challenges she has faced in obtaining her new dose of levothyroxine 100 mcg. I explained that while brand names like Levoxyl are medically equivalent to generic levothyroxine, I understand the primary issue is with pharmacy dispensing practices and insurance coverage leading to prohibitive costs for her. We agreed that my staff will call her pharmacy ([facility]) with her present to resolve this matter today, ensuring she receives the correct medication at her expected cost. I advised her to skip her Thursday dose in the meantime. We also discussed the plan to check her hemoglobin A1c in the office today and for her to attend her follow-up ultrasound for an abnormal mammogram finding. Patient Instructions - We will check your hemoglobin A1c level with a finger-stick test in the office today. - Until you receive your new prescription, please skip taking your thyroid pill every Thursday. - Please remain at the clinic so that my staff can call your pharmacy manager of hospital with you to sort out your levothyroxine prescription. - Please proceed with your scheduled breast ultrasound appointment tomorrow. Orders: Orders Influenza [id number] Immunization Today Z23 - Encounter for immunization
== END 2025-09-12 14:03 | disposition home or self-care (01) ==
LOC: HO.HMCSH 13:17
PROVIDERS: PCP Internal Medicine; Visit Provider Internal Medicine
DX: E03.9 Hypothyroidism, unspecified (principal); Z23 Encounter for immunization; E74.39 Other disorders of intestinal carbohydrate absorption

== ENCOUNTER → 2025-09-12 13:17 | Outpatient (BNVA) | payer MEDICARE, SELFPAY | PROVIDERS: PCP Internal Medicine; Visit Provider Internal Medicine | DX: E11.9 Type 2 diabetes mellitus without complications (principal); E03.9 Hypothyroidism, unspecified; Z28.89 Immunization not carried out for other reason | CPT/HCPCS: 83036; 90471; 96127; 99212 ==